=== PATIENT | male | born 1985 | race Caucasian/White ===

== ENCOUNTER 2020-10-27 10:12 | Emergency (ER) | payer OTHER ==
[~2020-10-27] VITALS: Ht 177.8 cm; Wt 117.9 kg
[2020-10-27] MEDS ORDERED: PREDNISONE20 MG PO (10:49)
[2020-10-27] MEDS ORDERED: CYCLOBENZAPRINE10 MG PO (10:50)
== END 2020-10-27 11:00 | disposition home or self-care (01) ==
LOC: ED 10:12
DX: M54.5 Low back pain (principal)
CPT/HCPCS: 99283; J7512

== ENCOUNTER 2024-09-03 04:42 | Emergency (ER) | payer OTHER ==
[~2024-09-03] VITALS: Ht 177.8 cm; Wt 119.7 kg
[~2024-09-03 04:42] MED LIST: CYCLOBENZAPRINE10 MG PO; PREDNISONE20 MG PO
[2024-09-03] MEDS ORDERED: TETRACAINE HCL 0.5% 4 ML BTL OS SCH (05:00)
[2024-09-03 05:10] VITALS: BP 149/105
== END 2024-09-03 05:10 | disposition home or self-care (01) ==
LOC: ED 04:42
DX: T15.82XA Foreign body in other and multiple parts of external eye, left eye, initial encounter (principal); Z88.7 Allergy status to serum and vaccine; Z79.899 Other long term (current) drug therapy; W44.E0XA Non-magnetic metal object unspecified, entering into or through a natural orifice, initial encounter
CPT/HCPCS: 99283